=== PATIENT | female | born 1955 | race Caucasian/White ===

== ENCOUNTER → 2017-12-11 | Outpatient (CLI) | payer OTHER | LOC: BMCIMAGING 10:01 | PROVIDERS: ATTEND Internal Medicine Rheumatology | DX: J84.10 Pulmonary fibrosis, unspecified (principal) ==

== ENCOUNTER → 2017-12-25 | Outpatient (CLI) | payer OTHER | LOC: CIMAGING 09:50 | PROVIDERS: ATTEND Internal Medicine Rheumatology | DX: J18.9 Pneumonia, unspecified organism (principal); J84.10 Pulmonary fibrosis, unspecified; M51.34 Other intervertebral disc degeneration, thoracic region | CPT/HCPCS: 71250-PO ==

== ENCOUNTER → 2018-07-20 | Outpatient (CLI) | payer OTHER | LOC: FIMAGING 07:56 | PROVIDERS: ATTEND Internal Medicine Rheumatology | DX: K21.9 Gastro-esophageal reflux disease without esophagitis (principal); M50.321 Other cervical disc degeneration at C4-C5 level; M50.322 Other cervical disc degeneration at C5-C6 level; M50.323 Other cervical disc degeneration at C6-C7 level; M43.12 Spondylolisthesis, cervical region ==

== ENCOUNTER → 2018-10-10 | Outpatient (CLI) | payer OTHER | LOC: EMCIMAGING 09:51 | PROVIDERS: ATTEND Family Medicine | DX: Z13.820 Encounter for screening for osteoporosis (principal); M85.89 Other specified disorders of bone density and structure, multiple sites; Z78.0 Asymptomatic menopausal state; Z79.899 Other long term (current) drug therapy | CPT/HCPCS: 77080-PN ==

== ENCOUNTER → 2018-10-11 | Outpatient (CLI) | payer OTHER | PROVIDERS: ATTEND Family Medicine | DX: R13.10 Dysphagia, unspecified (principal); R05 Cough; M47.812 Spondylosis without myelopathy or radiculopathy, cervical region | CPT/HCPCS: 92611-GN ==

== ENCOUNTER 2018-12-04 13:45 | Emergency (ER) | payer OTHER ==
[2018-12-04] MEDS ORDERED: LORazepam 1 MG TAB PO ONE (14:12)
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
[2018-12-04] MEDS ORDERED: ACETAMINOPHEN 500 MG TAB PO ONE (15:02)
[2018-12-04 15:12] VITALS: BP 145/79
== END 2018-12-04 15:11 | disposition home or self-care (01) ==
LOC: CED 13:45
DX: S40.022A Contusion of left upper arm, initial encounter (principal); J84.9 Interstitial pulmonary disease, unspecified; F41.9 Anxiety disorder, unspecified; V49.49XA Driver injured in collision with other motor vehicles in traffic accident, initial encounter; Z79.01 Long term (current) use of anticoagulants
CPT/HCPCS: 71046-PO; 73090-PO; 99284-ER

== ENCOUNTER → 2019-02-04 | Day surgery (SDC) | payer OTHER | END | disposition home or self-care (01) | LOC: FSGY 08:47 ==